=== PATIENT | male | born 1995 | race American Indian/Alaskan Native ===

== ENCOUNTER 2017-05-27 10:37 | Emergency (ER) | payer SELFPAY ==
[2017-05-27] MEDS ORDERED: TORADOL IM ONE (16:06)
--- NOTE | 2017-05-27 16:10 | Emergency Department Report ---
ED ENT HPI - General Chief complaint: Dental/Oral Stated complaint: TOOTH ABSCESS Time Seen by Provider: 05/27/17 15:33 Source: patient Mode of arrival: Ambulatory Limitations: No Limitations - History of Present Illness Initial comments: This is a 21-year-old male nontoxic, well nourished in appearance, no acute signs of distress presents to the ED with c/o of left toothache x2 days. Patient stated has chronic intermittent failure that is worse raising a with swelling. Patient denies any trauma to the region. Patient denies any chest pain, shortness breath, fever, chills, nausea vomiting, stiff neck, or headache. Patient denies any numbness or tingling. Patient denies any allergies or PMH. MD complaint: tooth pain -: days(s) (2) Location: tooth # (19) 1 - tothache Severity: mild Severity scale (0 -10): 8 Quality: aching Consistency: constant Improves with: none Worsens with: none Context- Dental: history of dental caries, poor dental care Associated Symptoms: gum swelling, toothache. denies: fever, cough, pain with swallowing, sore throat, tinnitus, hearing loss, discharge from ear, rhinorrhea - Related Data Previous Rx's Medication Instructions Recorded Last Taken Type Chlorhexidine Mouthwash [Peridex] 15 ml MM BID #1 bottle 05/27/17 Unknown Rx Clindamycin [Clindamycin CAP] 300 mg PO Q8H 7 Days cap 05/27/17 Unknown Rx traMADol [Ultram] 50 mg PO Q6HR PRN #12 tablet 05/27/17 Unknown Rx ED Dental HPI - General Chief complaint: Dental/Oral Stated complaint: TOOTH ABSCESS Time Seen by Provider: 05/27/17 15:33 Source: patient Mode of arrival: Ambulatory Limitations: No Limitations - Related Data Previous Rx's Medication Instructions Recorded Last Taken Type Chlorhexidine Mouthwash [Peridex] 15 ml MM BID #1 bottle 05/27/17 Unknown Rx Clindamycin [Clindamycin CAP] 300 mg PO Q8H 7 Days cap 05/27/17 Unknown Rx traMADol [Ultram] 50 mg PO Q6HR PRN #12 tablet 05/27/17 Unknown Rx ED Review of Systems ROS: Stated complaint: TOOTH ABSCESS Other details as noted in HPI Constitutional: denies: chills, fever Eyes: denies: eye pain, eye discharge, vision change ENT: dental pain. denies: ear pain, throat pain Respiratory: denies: cough, shortness of breath, wheezing Cardiovascular: denies: chest pain, palpitations Endocrine: no symptoms reported Gastrointestinal: denies: abdominal pain, nausea, diarrhea Genitourinary: denies: urgency, dysuria Musculoskeletal: denies: back pain, joint swelling, arthralgia Skin: denies: rash, lesions Neurological: denies: headache, weakness, paresthesias Psychiatric: denies: anxiety, depression Hematological/Lymphatic: denies: easy bleeding, easy bruising ED Past Medical Hx - Past Medical History Previous Medical History?: No - Medications Home Medications: Home Medications Medication Instructions Recorded Confirmed Last Taken Type Chlorhexidine Mouthwash [Peridex] 15 ml MM BID #1 bottle 05/27/17 Unknown Rx Clindamycin [Clindamycin CAP] 300 mg PO Q8H 7 Days cap 05/27/17 Unknown Rx traMADol [Ultram] 50 mg PO Q6HR PRN #12 tablet 05/27/17 Unknown Rx ED Physical Exam - General Limitations: No Limitations General appearance: alert, in no apparent distress - Head Head exam: Present: atraumatic, normocephalic - Eye Eye exam: Present: normal appearance, PERRL, EOMI Pupils: Present: normal accommodation - ENT ENT exam: Present: mucous membranes moist, TM's normal bilaterally, normal external ear exam - Expanded ENT Exam Expanded Ear exam: Present: normal external inspection Mouth exam: Present: normal external inspection, tongue normal. Absent: drooling, trismus, muffled voice, tongue elevation, laceration Teeth exam: Present: dental caries, fractured tooth # (19), dental tenderness # (19), gingival enlargement, other (Slight swelling to left mandible region. No induration or fluctuance noted. No surrounding erythema noted. ) 1 - Fractured, Dental Tenderness Throat exam: Positive: normal inspection, other (Uvula midline.). Negative: tonsillar erythema, tonsillomegaly, tonsillar exudate, R peritonsillar mass, L peritonsillar mass - Neck Neck exam: Present: normal inspection, full ROM. Absent: tenderness, meningismus, lymphadenopathy, thyromegaly - Respiratory Respiratory exam: Present: normal lung sounds bilaterally. Absent: respiratory distress, wheezes, rales, rhonchi, stridor, chest wall tenderness, accessory muscle use, decreased breath sounds, prolonged expiratory - Cardiovascular Cardiovascular Exam: Present: regular rate, normal rhythm, normal heart sounds. Absent: tachycardia, irregular rhythm, systolic murmur, diastolic murmur, rubs , gallop - GI/Abdominal GI/Abdominal exam: Present: soft, normal bowel sounds - Rectal Rectal exam: Present: deferred - Extremities Exam Extremities exam: Present: normal inspection - Back Exam Back exam: Present: normal inspection - Neurological Exam Neurological exam: Present: alert, oriented X3 - Psychiatric Psychiatric exam: Present: normal affect, normal mood - Skin Skin exam: Present: warm, dry, intact, normal color. Absent: rash ED Course Vital Signs 05/27/17 11:43 Temperature 98.2 F Pulse Rate 58 L Blood Pressure 112/56 O2 Sat by Pulse 100 Oximetry - Reevaluation(s) Reevaluation #1: 05/27/17 16:10 Patient is speaking in full sentences with no signs of distress noted. Critical care attestation.: If time is entered above; I have spent that time in minutes in the direct care of this critically ill patient, excluding procedure time. ED Disposition Clinical Impression: Dental caries, Gingivitis Disposition: DC-01 TO HOME OR SELFCARE Is pt being admited?: No Does the pt Need Aspirin: No Condition: Stable Instructions: Dental Caries (ED), Gingivitis (ED), Clindamycin (By mouth), Tramadol (By mouth) Additional Instructions: Follow-up with a dentist/oral maxillary surgeon in 24 hours or if symptoms worsen and continue return to emergency room as soon as possible. Do not operate any machinery while taking Ultram due to drowsiness. Prescriptions: Chlorhexidine Mouthwash [Peridex] 15 ml MM BID #1 bottle Clindamycin [Clindamycin CAP] 300 mg PO Q8H 7 Days cap traMADol [Ultram] 50 mg PO Q6HR PRN #12 tablet PRN Reason: Pain Referrals: PRIMARY CARE, [Primary Care Provider] - 3-5 Days LAMIN AVILEZ MD [Staff Physician] - 3-5 Days [facility] [Outside] - 24 Hours Forms: Work/School Release Form(ED)
[2017-05-27 16:49] VITALS: BP 113/67
== END 2017-05-27 16:48 | disposition home or self-care (01) ==
LOC: ED 10:37
DX: K02.9 Dental caries, unspecified (principal); K05.10 Chronic gingivitis, plaque induced
CPT/HCPCS: 96372; 99282; J1885

== ENCOUNTER 2018-07-29 19:37 | Emergency (ER) | payer OTHER ==
[2018-07-30 00:37] VITALS: BP 107/66
--- NOTE | 2018-07-30 02:00 | Emergency Department Report ---
ED ENT HPI - General Chief complaint: Dental/Oral Stated complaint: TOOTH ABCESS/SWOLLEN JAW Time Seen by Provider: 07/30/18 01:25 Source: patient Mode of arrival: Ambulatory Limitations: No Limitations - History of Present Illness Initial comments: 23-year-old male presents emerge department complaining of recurrent dental pain to the left lower molar which is aggravating him on this episode for the last 4 days. Pain is dull and throbbing, worse with chewing, eating and palpation. No associated with some swelling to the left mandible region as well. No fever, chills, sweats, chest pain, palpitations, dysphagia, voice change, nausea, vomiting, hemoptysis, hematemesis, MD complaint: tooth pain Location: tooth # Severity: mild, moderate Quality: dull Consistency: constant Improves with: none Worsens with: none Context- Dental: poor dental care Associated Symptoms: toothache. denies: cough, gum swelling - Related Data Previous Rx's Medication Instructions Recorded Last Taken Type Clindamycin [Clindamycin CAP] 300 mg PO Q8H 7 Days cap 05/27/17 Unknown Rx traMADol [Ultram] 50 mg PO Q6HR PRN #12 tablet 05/27/17 Unknown Rx Chlorhexidine Mouthwash [Peridex] 15 ml MM BID #1 bottle 07/30/18 Unknown Rx Clindamycin [Clindamycin CAP] 150 mg PO Q8HR #30 capsule 07/30/18 Unknown Rx Allergies Allergy/AdvReac Type Severity Reaction Status Date / Time No Known Allergies Allergy Verified 07/29/18 19:47 ED Dental HPI - General Chief complaint: Dental/Oral Stated complaint: TOOTH ABCESS/SWOLLEN JAW Time Seen by Provider: 07/30/18 01:25 Source: patient Mode of arrival: Ambulatory Limitations: No Limitations - Related Data Previous Rx's Medication Instructions Recorded Last Taken Type Clindamycin [Clindamycin CAP] 300 mg PO Q8H 7 Days cap 05/27/17 Unknown Rx traMADol [Ultram] 50 mg PO Q6HR PRN #12 tablet 05/27/17 Unknown Rx Chlorhexidine Mouthwash [Peridex] 15 ml MM BID #1 bottle 07/30/18 Unknown Rx Clindamycin [Clindamycin CAP] 150 mg PO Q8HR #30 capsule 07/30/18 Unknown Rx Allergies Allergy/AdvReac Type Severity Reaction Status Date / Time No Known Allergies Allergy Verified 07/29/18 19:47 ED Review of Systems ROS: Stated complaint: TOOTH ABCESS/SWOLLEN JAW Other details as noted in HPI Comment: All other systems reviewed and negative Constitutional: denies: chills, fever Eyes: denies: eye pain, eye discharge, vision change ENT: dental pain. denies: ear pain, throat pain Respiratory: denies: cough, shortness of breath, wheezing Cardiovascular: denies: chest pain, palpitations Endocrine: no symptoms reported Gastrointestinal: denies: abdominal pain, nausea, diarrhea Genitourinary: denies: urgency, dysuria Musculoskeletal: denies: back pain, joint swelling, arthralgia Skin: denies: rash, lesions Neurological: denies: headache, weakness, paresthesias Psychiatric: denies: anxiety, depression Hematological/Lymphatic: denies: easy bleeding, easy bruising ED Past Medical Hx - Past Medical History Previous Medical History?: No - Surgical History Past Surgical History?: No - Social History Smoking Status: Never Smoker Substance Use Type: None - Medications Home Medications: Home Medications Medication Instructions Recorded Confirmed Last Taken Type Clindamycin [Clindamycin CAP] 300 mg PO Q8H 7 Days cap 05/27/17 Unknown Rx traMADol [Ultram] 50 mg PO Q6HR PRN #12 tablet 05/27/17 Unknown Rx Chlorhexidine Mouthwash [Peridex] 15 ml MM BID #1 bottle 07/30/18 Unknown Rx Clindamycin [Clindamycin CAP] 150 mg PO Q8HR #30 capsule 07/30/18 Unknown Rx ED Physical Exam - General Limitations: No Limitations General appearance: alert, in no apparent distress - Head Head exam: Present: atraumatic, normocephalic - Eye Eye exam: Present: normal appearance, PERRL, EOMI Pupils: Present: normal accommodation - ENT ENT exam: Present: normal exam, normal orophraynx, mucous membranes moist, TM's normal bilaterally, normal external ear exam, other (several dental caries noted throughout the mouth. With some dental fractures noted to the left lower and right lower molars region. There is some adjacent gingival swelling to the severe erosion in the left lower molar region tooth #30 and 31) - Neck Neck exam: Present: normal inspection, full ROM - Respiratory Respiratory exam: Present: normal lung sounds bilaterally. Absent: respiratory distress, wheezes, rhonchi, chest wall tenderness, accessory muscle use, decreased breath sounds - Cardiovascular Cardiovascular Exam: Present: regular rate, normal rhythm. Absent: systolic murmur, diastolic murmur, rubs, gallop - GI/Abdominal GI/Abdominal exam: Present: soft, normal bowel sounds. Absent: tenderness, guarding, organomegaly, mass, bruit, pulsatile mass - Rectal Rectal exam: Present: deferred - Extremities Exam Extremities exam: Present: normal inspection, full ROM, normal capillary refill. Absent: pedal edema, calf tenderness - Back Exam Back exam: Present: normal inspection. Absent: CVA tenderness (R), CVA tenderness (L), paraspinal tenderness, vertebral tenderness - Neurological Exam Neurological exam: Present: alert, oriented X3 - Psychiatric Psychiatric exam: Present: normal affect, normal mood - Skin Skin exam: Present: warm, dry, intact, normal color. Absent: rash ED Course Vital Signs 07/29/18 07/29/18 07/30/18 20:54 21:22 00:35 Temperature 98.7 F 98.1 F 98.0 F Pulse Rate 64 85 71 Respiratory 18 18 16 Rate Blood Pressure 107/66 148/75 107/66 O2 Sat by Pulse 100 100 10 L Oximetry Critical care attestation.: If time is entered above; I have spent that time in minutes in the direct care of this critically ill patient, excluding procedure time. ED Disposition Clinical Impression: Dentalgia, Infected dental caries Disposition: TO HOME OR SELFCARE Is pt being admited?: No Does the pt Need Aspirin: No Condition: Stable Instructions: Dental Caries (ED), Toothache (ED) Prescriptions: Clindamycin [Clindamycin CAP] 150 mg PO Q8HR #30 capsule Chlorhexidine Mouthwash [Peridex] 15 ml MM BID #1 bottle Referrals: CARLOTA ESPINOSA MD [Primary Care Provider] - 3-5 Days
[2018-07-30] MEDS ORDERED: PERCOCET 5/325 PO ONE (02:08)
== END 2018-07-30 02:19 | disposition home or self-care (01) ==
LOC: ED 19:37
DX: K02.9 Dental caries, unspecified (principal)
CPT/HCPCS: 99282

== ENCOUNTER 2019-01-05 02:13 | Emergency (ER) | payer SELFPAY ==
[2019-01-05] MEDS ORDERED: ZOFRAN ODT PO ONE ×2 (02:34→04:01)
[2019-01-05] MEDS ORDERED: ZOFRAN ODT ONE (02:35)
[2019-01-05] MEDS ORDERED: DELTASONE PO ONE (03:38)
[2019-01-05] MEDS ORDERED: PROVENTIL IH ONE (03:38)
[2019-01-05] MEDS ORDERED: IBUPROFEN PO ONE (03:38)
--- NOTE | 2019-01-05 03:45 | XRay Report ---
CHEST 2 VIEWS 0246 INDICATION / CLINICAL INFORMATION: Coughing yellow mucus. COMPARISON: None available. FINDINGS: SUPPORT DEVICES: None. HEART / MEDIASTINUM: No significant abnormality. LUNGS / PLEURA: No areas of consolidation are seen. No pleural effusions are noted. On PA view there is a question of a vague nodular density in the lateral left upper lobe measuring approximately 7 mm. Probably this is artifactual but I would suggest follow-up examination. No pneumothorax. ADDITIONAL FINDINGS: No significant additional findings. IMPRESSION: No significant acute abnormality. Question of left upper lobe nodule as above. Signer Name: Amrit Leiva MD Signed: 01/05/2019 3:41 AM Workstation Name: [id number]
--- NOTE | 2019-01-05 04:08 | Emergency Department Report ---
ED General Adult HPI - General Chief complaint: Nausea/Vomiting/Diarrhea Stated complaint: VOMITING,LOST OF VOICE, MUCUS BUILD UP Time Seen by Provider: 01/05/19 03:35 Source: patient Mode of arrival: Ambulatory Limitations: No Limitations - History of Present Illness Initial comments: Patient is a 23-year-old -[place] male who presents for URI symptoms including sore throat head congestion productive cough yellow green thick Nocturnal wheezing patient denies history of asthma or bronchitis maxaquin at home no fever noted in triage tonight temp was 97.9 Fahrenheit oral patient advises symptoms are exacerbated by environmental exposure 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 Onset/Timin -: days(s) Location: head, chest Radiation: non-radiation Severity scale (0 -10): 4 Quality: aching Consistency: intermittent Improves with: rest Worsens with: other (environmental exposure ) Associated Symptoms: cough, nausea/vomiting - Related Data Previous Rx's Medication Instructions Recorded Last Taken Type Clindamycin [Clindamycin CAP] 300 mg PO Q8H 7 Days cap 05/27/17 Unknown Rx traMADol [Ultram] 50 mg PO Q6HR PRN #12 tablet 05/27/17 Unknown Rx Chlorhexidine Mouthwash [Peridex] 15 ml MM BID #1 bottle 07/30/18 Unknown Rx Clindamycin [Clindamycin CAP] 150 mg PO Q8HR #30 capsule 07/30/18 Unknown Rx Ketorolac [Toradol] 10 mg PO Q6H PRN #15 tablet 07/30/18 Unknown Rx ALBUTEROL Inhaler (OR & NICU) 2 puff IH QID PRN #1 inhalation 01/05/19 Unknown Rx [ProAir HFA Inhaler] Azithromycin [Zithromax Z-TEO] 250 mg PO DAILY 5 Days #6 tab 01/05/19 Unknown Rx Benzonatate [Tessalon Perles] 100 mg PO Q8HR PRN #30 capsule 01/05/19 Unknown Rx Ibuprofen [Motrin 800 MG tab] 800 mg PO Q8HR PRN #30 tablet 01/05/19 Unknown Rx predniSONE [Deltasone] 40 mg PO QDAY 5 Days #10 tab 01/05/19 Unknown Rx Allergies Allergy/AdvReac Type Severity Reaction Status Date / Time No Known Allergies Allergy Verified 07/29/18 19:47 ED Review of Systems ROS: Stated complaint: VOMITING,LOST OF VOICE, MUCUS BUILD UP Other details as noted in HPI Constitutional: fever. denies: chills ENT: throat pain, congestion Respiratory: cough, shortness of breath, wheezing Cardiovascular: denies: chest pain, palpitations Endocrine: no symptoms reported Gastrointestinal: denies: abdominal pain, nausea, vomiting, diarrhea Genitourinary: denies: urgency, dysuria Musculoskeletal: denies: back pain, joint swelling, arthralgia Skin: denies: rash, lesions Neurological: denies: headache, weakness, paresthesias Psychiatric: denies: anxiety, depression Hematological/Lymphatic: denies: easy bleeding, easy bruising ED Past Medical Hx - Past Medical History Previous Medical History?: No - Surgical History Past Surgical History?: No - Social History Smoking Status: Never Smoker - Medications Home Medications: Home Medications Medication Instructions Recorded Confirmed Last Taken Type Clindamycin [Clindamycin CAP] 300 mg PO Q8H 7 Days cap 05/27/17 Unknown Rx traMADol [Ultram] 50 mg PO Q6HR PRN #12 tablet 05/27/17 Unknown Rx Chlorhexidine Mouthwash [Peridex] 15 ml MM BID #1 bottle 07/30/18 Unknown Rx Clindamycin [Clindamycin CAP] 150 mg PO Q8HR #30 capsule 07/30/18 Unknown Rx Ketorolac [Toradol] 10 mg PO Q6H PRN #15 tablet 07/30/18 Unknown Rx ALBUTEROL Inhaler (OR & NICU) 2 puff IH QID PRN #1 inhalation 01/05/19 Unknown Rx [ProAir HFA Inhaler] Azithromycin [Zithromax Z-TEO] 250 mg PO DAILY 5 Days #6 tab 01/05/19 Unknown Rx Benzonatate [Tessalon Perles] 100 mg PO Q8HR PRN #30 capsule 01/05/19 Unknown Rx Ibuprofen [Motrin 800 MG tab] 800 mg PO Q8HR PRN #30 tablet 01/05/19 Unknown Rx predniSONE [Deltasone] 40 mg PO QDAY 5 Days #10 tab 01/05/19 Unknown Rx ED Physical Exam - General Limitations: No Limitations General appearance: alert, in no apparent distress - Head Head exam: Present: atraumatic, normocephalic - Eye Eye exam: Present: normal appearance, PERRL, EOMI. Absent: conjunctival injection, nystagmus Pupils: Present: normal accommodation - ENT ENT exam: Present: normal exam, mucous membranes moist, TM's normal bilaterally, normal external ear exam - Expanded ENT Exam Expanded Ear exam: Present: normal external inspection Throat exam: Positive: tonsillar erythema, tonsillomegaly, other (uvula midline no exudate no lesion no stridor no wheezes ). Negative: tonsillar exudate, R peritonsillar mass, L peritonsillar mass - Neck Neck exam: Present: normal inspection, full ROM. Absent: tenderness, meningismus, lymphadenopathy, thyromegaly - Respiratory Respiratory exam: Present: normal lung sounds bilaterally, wheezes, chest wall tenderness (right lateral chest wall ). Absent: respiratory distress, stridor - Cardiovascular Cardiovascular Exam: Present: regular rate, normal rhythm, normal heart sounds. Absent: systolic murmur, diastolic murmur, rubs, gallop - GI/Abdominal GI/Abdominal exam: Present: soft, normal bowel sounds. Absent: distended, tenderness, bruit, hernia - Rectal Rectal exam: Present: deferred - exam: Present: other (deferred) - Extremities Exam Extremities exam: Present: normal inspection, full ROM, normal capillary refill. Absent: tenderness, pedal edema - Back Exam Back exam: Present: normal inspection, full ROM. Absent: tenderness, CVA tend erness (R), CVA tenderness (L) - Neurological Exam Neurological exam: Present: alert, oriented X3, CN II-XII intact, normal gait, reflexes normal. Absent: motor sensory deficit - Psychiatric Psychiatric exam: Present: normal affect, normal mood - Skin Skin exam: Present: warm, dry, intact, normal color. Absent: rash ED Course Vital Signs 01/05/19 02:25 Temperature 97.9 F Pulse Rate 80 Respiratory 20 Rate Blood Pressure 107/54 O2 Sat by Pulse 96 Oximetry ED Medical Decision Making - Radiology Data Radiology results: report reviewed, image reviewed Ordering Physician: COOPER HAMILTON NP Date of Service: 01/05/19 Procedure(s): XR chest routine 2V Accession Number(s): [id number] cc: COOPER HAMILTON NP Fluoro Time In Minutes: CHEST 2 VIEWS 0246 INDICATION / CLINICAL INFORMATION: Coughing yellow mucus. COMPARISON: None available. FINDINGS: SUPPORT DEVICES: None. HEART / MEDIASTINUM: No significant abnormality. LUNGS / PLEURA: No areas of consolidation are seen. No pleural effusions are noted. On PA view there is a question of a vague nodular density in the lateral left upper lobe measuring approximately 7 mm. Probably this is artifactual but I would suggest follow-up examination. No pneumothorax. ADDITIONAL FINDINGS: No significant additional findings. IMPRESSION: No significant acute abnormality. Question of left upper lobe nodule as above. Signer Name: Amrit Leiva MD Signed: 01/05/2019 3:41 AM Workstation Name: [id number] Transcribed By: SATURNINO Dictated By: Amrit Leiva MD Electronically Authenticated By: Amrit Leiva MD Signed Date/Time: 01/05/19340 DD/ 8 TD/TT: - Medical Decision Making Chest x-ray questionable left upper lobe nausea proximally sedimentary follow with pulmonology for evaluation of same patient does not appear toxic there is no fever there is a productive cough treated for bronchitis including azithromycin albuterol inhaler prednisone ibuprofen and Tessalon Perles for cough patient will follow with PCP in 2-3 days given referral sounds are comedogenic clinic patient will return to ED should symptoms worsen patient verbalizes understanding and agreement with discharge plan patient DC'd to home in stable condition at this time. Critical care attestation.: If time is entered above; I have spent that time in minutes in the direct care of this critically ill patient, excluding procedure time. ED Disposition Clinical Impression: Bronchitis Disposition: DC-01 TO HOME OR SELFCARE Is pt being admited?: No Does the pt Need Aspirin: No Condition: Stable Instructions: Acute Bronchitis (ED) Prescriptions: predniSONE [Deltasone] 40 mg PO QDAY 5 Days #10 tab Ibuprofen [Motrin 800 MG tab] 800 mg PO Q8HR PRN #30 tablet PRN Reason: pain fever ALBUTEROL Inhaler (OR & NICU) [ProAir HFA Inhaler] 2 puff IH QID PRN #1 inhalation PRN Reason: Shortness Of Breath Benzonatate [Tessalon Perles] 100 mg PO Q8HR PRN #30 capsule PRN Reason: Cough Azithromycin [Zithromax Z-TEO] 250 mg PO DAILY 5 Days #6 tab Referrals: PRIMARY CARE, [Primary Care Provider] - 3-5 Days Forms: Work/School Release Form(ED) Time of Disposition: 04:18
[2019-01-05 04:44] VITALS: BP 109/68
== END 2019-01-05 04:45 | disposition home or self-care (01) ==
LOC: ED 02:13
DX: J40 Bronchitis, not specified as acute or chronic (principal); Z79.899 Other long term (current) drug therapy
CPT/HCPCS: 71046; 94640; 99283; J7512; Q0162